=== PATIENT | male | born 2000 | race Caucasian/White ===

== ENCOUNTER 2021-05-16 12:42 | Emergency (ER) ==
[~2021-05-16] VITALS: Ht 167.6 cm; Wt 66.0 kg
== END 2021-05-16 17:47 | disposition left against medical advice (07) ==
LOC: M ED 12:42
DX: Z53.21 Procedure and treatment not carried out due to patient leaving prior to being seen by health care provider (principal)

== ENCOUNTER 2021-11-16 14:09 | Emergency (ER) | payer OTHER, SELFPAY ==
[~2021-11-16] VITALS: Ht 167.6 cm; Wt 59.6 kg
[2021-11-16 14:11] VITALS: BP 111/75
== END 2021-11-16 17:53 | disposition home or self-care (01) ==
LOC: M ED 14:09
DX: S69.92XA Unspecified injury of left wrist, hand and finger(s), initial encounter (principal); W19.XXXA Unspecified fall, initial encounter; Y92.89 Other specified places as the place of occurrence of the external cause; Y99.0 Civilian activity done for income or pay

== ENCOUNTER 2024-06-18 05:27 | Inpatient (IN) | payer MEDICAID, OTHER ==
[~2024-06-18] VITALS: Ht 177.8 cm; Wt 58.7 kg
[2024-06-18 06:12] LABS: HEMOGLOBIN 15.4 g/dl (13.5-17.5); MEAN CORPUSCULAR HEMOGLOBIN 31.1 pg (27.0-33.0); MEAN CORPUSCULAR VOLUME 88.9 fl (80.0-96.0); PLATELET COUNT, AUTOMATED 237 10^3/uL (150-450); RED BLOOD COUNT 4.95 10^6/uL (4.30-6.10); WHITE BLOOD COUNT 11.5 10^3/uL (4.0-10.0)
[2024-06-18 06:30] LABS: AMPHETAMINES LEVEL URINE NEGATIVE (NEGATIVE); BARBITURATES URINE NEGATIVE (NEGATIVE); COCAINE METABOLITE URINE NEGATIVE (NEGATIVE); METHADONE URINE NEGATIVE (NEGATIVE); OPIATES URINE NEGATIVE (NEGATIVE); PHENCYCLIDINE URINE NEGATIVE (NEGATIVE)
[2024-06-18 06:31] LABS: BENZODIAZEPINES URINE NEGATIVE (NEGATIVE); CANNABINOIDS URINE POSITIVE (NEGATIVE)
[2024-06-18 06:32] LABS: ETHYL ALCOHOL (ETHANOL) 0.008 % (0.000-0.010)
[2024-06-18 06:34] LABS: ALBUMIN 4.3 G/DL (3.2-5.2); ALKALINE PHOSPHATASE 84 U/L (40-129); ALT/SGPT 18 U/L (7.0-40); AST/SGOT 18 U/L (<34); BILIRUBIN,DIRECT 0.2 MG/DL (<0.4); BILIRUBIN,TOTAL 0.6 MG/DL (0.3-1.2); BLOOD UREA NITROGEN 11 MG/DL (9-23); CALCIUM LEVEL 9.8 MG/DL (8.5-10.1); CARBON DIOXIDE LEVEL 27 MMOL/L (20-31); CHLORIDE LEVEL 103 MMOL/L (98-107); CREATININE FOR GFR 0.85 MG/DL (0.70-1.30); GLOMERULAR FILTRATION RATE > 60.0 (>60); GLUCOSE, FASTING 146 MG/DL (60-100); SALICYLATE LEVEL < 3.0 MG/DL (<30); SODIUM LEVEL 140 MMOL/L (136-145); TOTAL PROTEIN 7.6 G/DL (5.7-8.2)
[2024-06-18 06:36] LABS: THYROID STIMULATING HORMONE 1.511 uIU/ML (0.55-4.78)
[2024-06-18] MEDS ORDERED: HOME MED LIST COMPLETE! XX SCH (08:50)
[2024-06-18] MEDS ORDERED: ACETAMINOPHEN 325 MG TAB PO PRN (11:40)
[2024-06-18] MEDS ORDERED: OLANZapine 5 MG TAB PO PRN (11:40)
[2024-06-18] MEDS ORDERED: diphenhydrAMINE 25MG CAP PO PRN (11:40)
[2024-06-18] MEDS ORDERED: OLANZapine ORAL DISINTEGRATING TAB 5MG PO PRN (11:40)
[2024-06-18] MEDS ORDERED: MOM 30ML SUSPENSION UDC PO PRN (11:40)
[2024-06-18] MEDS ORDERED: LORazepam 1 MG TAB PO PRN (11:40)
[2024-06-18] MEDS ORDERED: traZODone 50 MG TAB PO PRN (11:40)
[2024-06-18] MEDS ORDERED: MAALOX 30 ML SUSP *UDC PO PRN (11:40)
[2024-06-18] MEDS: NICOTINE 14 MG/24 HR TRANSDERMAL TD SCH (12:31)
[2024-06-18 12:38] VITALS: BP 121/85; TEMP 98; O2SAT 100
[2024-06-19 06:23] VITALS: BP 119/78; TEMP 98; O2SAT 98
[2024-06-19 17:03] VITALS: BP 142/84; TEMP 98.5; O2SAT 99
[2024-06-20 06:10] VITALS: BP 108/60; TEMP 98.2; O2SAT 100
[2024-06-20] MEDS: ESCITALOPRAM OXALATE 10 MG TAB (LEXAPRO) PO SCH (12:59)
[2024-06-20 15:15] VITALS: BP 131/86; TEMP 98.4; O2SAT 98
[2024-06-21 06:59] VITALS: BP 143/72; TEMP 97.6; O2SAT 97
[2024-06-21 14:46] VITALS: BP 134/88; TEMP 98.4; O2SAT 99
[2024-06-22 16:58] VITALS: BP 122/78; TEMP 98.5; O2SAT 99
[2024-06-23 06:44] VITALS: BP 148/70; TEMP 97.2; O2SAT 100
== END 2024-06-23 10:52 | disposition home or self-care (01) | DRG 754 ==
LOC: M ED 05:27 → M ED INP 11:38 → M PSY 12:39
PROVIDERS: ADMIT Internal Medicine; ATTEND Psychiatry & Neurology Psychiatry
DX: F32.A Depression, unspecified (principal); F17.290 Nicotine dependence, other tobacco product, uncomplicated; Z63.8 Other specified problems related to primary support group; Z56.0 Unemployment, unspecified; F43.25 Adjustment disorder with mixed disturbance of emotions and conduct